=== PATIENT | male | born 1965 | race Caucasian/White ===

== ENCOUNTER → 2022-01-04 | Outpatient (CLI) | payer OTHER ==
[~2022-01-04] MED LIST: Aspir-Low81 MG; EPIN.3I; META800 PO; OLME20 PO
== END | disposition home or self-care (01) ==
LOC: LAB 15:02 → LAB SHORT 15:02 → PLD 15:02
DX: C44.311 Basal cell carcinoma of skin of nose (principal)
CPT/HCPCS: 88305

== ENCOUNTER 2024-01-02 08:46 | Day surgery (SDC) | payer BC ==
[~2024-01-02] VITALS: Ht 177.8 cm; Wt 83.8 kg
[~2024-01-02 08:46] MED LIST changes: +Lactated Ringer's 1,000 ML IV ONE; +MICARDIS HCT 81 EAC1 PO; +propofoL 50 ML IV ONE
[2024-01-02] MEDS ORDERED: Lactated Ringer's 1,000 ML IV ONE (10:55)
[2024-01-02 12:16] VITALS: BP 115/73
== END 2024-01-02 11:59 | disposition home or self-care (01) ==
LOC: ORSCSDS 08:46
PROVIDERS: Surgery
PROC: 0DBP8ZX Excision of Rectum, Via Natural or Artificial Opening Endoscopic, Diagnostic (ICD-10-PCS; principal; 2024-01-02 10:45)
PROC: 0DBL8ZX Excision of Transverse Colon, Via Natural or Artificial Opening Endoscopic, Diagnostic (ICD-10-PCS; principal; 2024-01-02 10:45)
DX: Z12.11 Encounter for screening for malignant neoplasm of colon (principal); D12.3 Benign neoplasm of transverse colon; D12.8 Benign neoplasm of rectum; I10 Essential (primary) hypertension; Z79.82 Long term (current) use of aspirin; Z79.899 Other long term (current) drug therapy
CPT/HCPCS: 88305; J2704; J7120